=== PATIENT | female | born 1950 | race Caucasian/White ===

== ENCOUNTER → 2020-12-24 | Outpatient (CLI) | payer MEDICARE ==
--- NOTE | 2020-12-24 11:29 | MR ---
EXAMINATION TYPE: MR brain wo/w con DATE OF EXAM: 12/24/2020 COMPARISON: NONE HISTORY: Tremors TECHNIQUE: Multiplanar, multisequence images of the brain and brainstem is performed without and with IV contras t, utilizing 4 ml mL intravenous Gadavist . FINDINGS: Diffusion weighted images demonstrate no evidence of a recent infarct or other diffusion ab normality. There is mild to moderate diffuse ventricular and sulcal prominence. Mild areas of T2 hyp erintensity throughout the deep and periventricular white matter. Midline structures demonstrate normal morphology. The craniocervical junction appears within normal limits. Post contrast images demonstrate no abnormal enhancement. The dural venous sinuses appear pa tent. The visualized sinuses are clear and the globes are intact. IMPRESSION: [id number] diffuse cerebral atrophy and mild chronic small vessel ischemic change. No suspicious enhancement noted.
== END | disposition home or self-care (01) ==
LOC: RADMRIMAIN 10:22
PROVIDERS: ATTEND Psychiatry & Neurology Psychiatry
DX: R25.9 Unspecified abnormal involuntary movements (principal)
CPT/HCPCS: 70553; A9585